=== PATIENT | female | born 1980 | race Two or more races ===

== ENCOUNTER 2016-12-29 21:57 | Emergency (ER) | payer SELFPAY ==
[~2016-12-29] VITALS: Ht 172.7 cm; Wt 58.1 kg
[2016-12-29 22:00] VITALS: BP 136/80
== END 2016-12-29 22:44 | disposition home or self-care (01) ==
LOC: ER 22:03
DX: T63.301A Toxic effect of unspecified spider venom, accidental (unintentional), initial encounter (principal); E05.90 Thyrotoxicosis, unspecified without thyrotoxic crisis or storm; Y92.89 Other specified places as the place of occurrence of the external cause
CPT/HCPCS: 99281; A4606; Z7610; Z7502